=== PATIENT | male | born 1940 | race Caucasian/White ===

== ENCOUNTER → 2018-04-25 | Outpatient (CLI) | payer MEDICARE, OTHER ==
[~2018-04-25] MED LIST: REGADENOSON 0.4 MG/5 ML SYRINGE ONE
== END | disposition home or self-care (01) ==
LOC: CFH 07:57
PROVIDERS: ATTEND Internal Medicine Cardiovascular Disease
DX: I48.91 Unspecified atrial fibrillation (principal); I99.8 Other disorder of circulatory system; Q21.0 Ventricular septal defect
CPT/HCPCS: 78452; 93017; A9502; J2785